=== PATIENT | male | born 1975 | race Caucasian/White ===

== ENCOUNTER 2024-03-13 20:10 | Emergency (ER) | payer BC ==
[2024-03-13] MEDS: HYDROmorphone 1 MG/ML Syringe IM ONE (20:44)
[2024-03-13] MEDS: Ketorolac 30 MG/ML SDV IM ONE (21:46)
== END 2024-03-13 22:25 | disposition home or self-care (01) ==
LOC: JP.ED 20:10
DX: S76.911A Strain of unspecified muscles, fascia and tendons at thigh level, right thigh, initial encounter (principal); X58.XXXA Exposure to other specified factors, initial encounter
CPT/HCPCS: 72170; 96372; 99283; J1170; J1885